=== PATIENT | female | born 1945 | race Caucasian/White ===

== ENCOUNTER 2018-11-18 09:06 | Outpatient (REF) | payer OTHER, SELFPAY ==
[2018-11-18 22:12] LABS: Anion Gap 8.5 mmol/L (3-11); BUN 15 mg/dL (7-18); CO2 28.5 mmol/L (21.0-32.0); CREATININE 0.99 mg/dL (0.55-1.02); Calcium 9.3 mg/dL (8.5-10.1); Chloride 102 mmol/L (98-107); Cholesterol 273 mg/dL (50-200); Estimated GFR 55.29 (mL/min/1.73m2); Glucose 82 mg/dL (70-100); HDL Cholesterol 96 mg/dL (40-60); LDL CHOLESTEROL 157 mg/dL (<100); Potassium 3.9 mmol/L (3.5-5.1); Sodium 139 mmol/L (136-145); TSH (W/Ref FT4) 4.88 uIU/mL (0.358-3.74); Triglyceride 66 mg/dL (30-150)
[2018-11-18 22:31] LABS: FREE T4 1.03 ng/dL (0.76-1.46)
== END 2018-11-18 09:26 ==
LOC: NCHCN 09:06
PROVIDERS: PCP Internal Medicine; Visit Provider Internal Medicine
DX: E03.9 Hypothyroidism, unspecified (principal)
CPT/HCPCS: 80048; 80061; 83721; 84439; 84443

== ENCOUNTER 2019-02-25 13:51 | Outpatient (REF) | payer OTHER, SELFPAY ==
[2019-02-25 22:55] LABS: C-Reactive Protein 0.11 mg/dL (0.0-0.3); Uric Acid 4.7 mg/dL (2.6-6.0)
[2019-03-01 09:18] LABS: Cyclic Citrullinated Peptide 3.6 U/mL (<5.0)
[2019-03-01 15:44] LABS: ANA Interpretation Negative (NEGAT)
== END 2019-02-25 14:11 ==
LOC: NCHCN 13:51
PROVIDERS: PCP Internal Medicine; Visit Provider Internal Medicine
DX: M79.641 Pain in right hand (principal)
CPT/HCPCS: 86200; 84550; 86038; 86140

== ENCOUNTER 2020-05-12 15:52 | Outpatient (REF) | payer OTHER, SELFPAY ==
[2020-05-12 21:45] LABS: TSH 2.59 uIU/mL (0.36-3.74)
== END 2020-05-12 16:12 ==
LOC: NCHCN 15:52
PROVIDERS: PCP Internal Medicine; Visit Provider Internal Medicine
DX: Z00.00 Encounter for general adult medical examination without abnormal findings (principal); E03.9 Hypothyroidism, unspecified
CPT/HCPCS: 84443

== ENCOUNTER 2021-05-15 09:52 | Outpatient (REF) | payer MEDICARE, SELFPAY ==
[2021-05-15 15:21] LABS: Anion Gap 8.9 mmol/L (3-11); BUN 13 mg/dL (7-18); CO2 27.1 mmol/L (21.0-32.0); CREATININE 0.9 mg/dL (0.55-1.02); Calcium 9.5 mg/dL (8.5-10.1); Calculated LDL 139 mg/dL (<100); Chloride 104 mmol/L (98-107); Cholesterol 240 mg/dL (<200); Glucose 87 mg/dL (74-106); HDL Cholesterol 86 mg/dL (40-60); Potassium 4.2 mmol/L (3.5-5.1); Sodium 140 mmol/L (136-145); TSH 2.52 uIU/mL (0.36-3.74); Triglyceride 78 mg/dL (<150)
== END 2021-05-15 09:53 | disposition home or self-care (01) ==
LOC: NCHCN 09:52
PROVIDERS: PCP Internal Medicine; Visit Provider Internal Medicine
DX: E03.9 Hypothyroidism, unspecified (principal); M85.88 Other specified disorders of bone density and structure, other site; Z00.00 Encounter for general adult medical examination without abnormal findings
CPT/HCPCS: 80048; 80061; 84443

== ENCOUNTER 2022-04-05 15:11 | Outpatient (REF) | payer MEDICARE, SELFPAY ==
[2022-04-05 20:48] LABS: HCT 40.9 % (36.0-46.0); HGB 12.8 g/dL (11.2-15.7); MCH 27.3 pg (27.0-33.0); MCHC 31.3 % (32.0-36.0); MCV 87 fL (80-95); MPV 9.8 fL (8.0-11.0); Platelet Count 417 10^3/uL (130-400); RBC 4.69 10^6/uL (3.93-5.22); RDW 13.2 % (11.7-14.6); RDW-SD 41.7 fL; WBC 4.87 10^3/uL (4.4-10.8)
[2022-04-05 21:21] LABS: ALT 29 U/L (14-59); AST 28 U/L (15-37); Albumin 3.9 g/dL (3.4-5.0); Alkaline Phosphatase 87 U/L (46-116); Anion Gap 10.8 mmol/L (3-11); BUN 10 mg/dL (7-18); Bilirubin, Total 0.4 mg/dL (0.2-1.0); CO2 25.2 mmol/L (21.0-32.0); CREATININE 0.9 mg/dL (0.55-1.02); Calcium 10.7 mg/dL (8.5-10.1); Chloride 98 mmol/L (98-107); Estimated GFR 67.08 (mL/min/1.73m2); Glucose 89 mg/dL (74-106); Potassium 4.4 mmol/L (3.5-5.1); Sodium 134 mmol/L (136-145); TSH (W/Ref FT4) 2.21 uIU/mL (0.36-3.74); Total Protein 8.6 g/dL (6.4-8.2)
== END 2022-04-05 15:12 | disposition home or self-care (01) ==
LOC: NCHCN 15:11
PROVIDERS: PCP Internal Medicine; Visit Provider Internal Medicine
DX: E03.9 Hypothyroidism, unspecified (principal); R53.83 Other fatigue
CPT/HCPCS: 80053; 85027; 84443

== ENCOUNTER 2022-05-23 15:18 | Outpatient (REF) | payer MEDICARE, SELFPAY ==
[2022-05-27 13:55] LABS: Helicobacter pylori Ag, Feces Negative (Negative)
== END 2022-05-23 15:19 | disposition home or self-care (01) ==
LOC: NCHCN 15:18
PROVIDERS: PCP Internal Medicine; Visit Provider Internal Medicine
DX: R63.4 Abnormal weight loss (principal)
CPT/HCPCS: 87338

== ENCOUNTER 2022-07-12 17:03 | Outpatient (REF) | payer MEDICARE, SELFPAY ==
[2022-07-12 20:48] LABS: Abs Immature Grans 0.27 10^3/uL (0.0-0.06); Absolute Basophil Count 0.05 10^3/uL (0.0-0.2); Absolute Monocyte Count 1.33 10^3/uL (0.1-0.8); Basophils % 0.3; Eosinophils % 0.3; HCT 23.6 % (36.0-46.0); Immature Grans % 1.7; Lymphocytes % 8.7; MCH 27.1 pg (27.0-33.0); MCHC 33.9 % (32.0-36.0); MCV 80 fL (80-95); MPV 9.1 fL (8.0-11.0); Monocytes % 8.4; Neutrophils % 80.6; RBC 2.95 10^6/uL (3.93-5.22); RDW 17.1 % (11.7-14.6); RDW-SD 48.3 fL; WBC 15.83 10^3/uL (4.4-10.8)
[2022-07-12 21:03] LABS: ALT 41 U/L (14-59); AST 60 U/L (15-37); Albumin 1.8 g/dL (3.4-5.0); Alkaline Phosphatase 207 U/L (46-116); Anion Gap 8.6 mmol/L (3-11); BUN 12 mg/dL (7-18); Bilirubin, Total 0.6 mg/dL (0.2-1.0); CO2 24.4 mmol/L (21.0-32.0); CREATININE 0.8 mg/dL (0.55-1.02); Calcium 8.6 mg/dL (8.5-10.1); Chloride 97 mmol/L (98-107); Estimated GFR 76.79 (mL/min/1.73m2); Glucose 102 mg/dL (74-106); Potassium 3.7 mmol/L (3.5-5.1); Sodium 130 mmol/L (136-145); TSH 21.76 uIU/mL (0.36-3.74); Total Protein 6.5 g/dL (6.4-8.2)
[2022-07-12 21:07] LABS: COMMENT (LAB VIEW ONLY) 98.72 mg/dL; Microalb ug/mg Crea 10.7 ug/mg Cr
[2022-07-12 21:25] LABS: Absolute Eosinophil Count 0.05 10^3/uL (0.0-0.7); Absolute Lymphocyte Count 1.38 10^3/uL (1.2-3.4); Absolute Neutrophil Count 12.76 10^3/uL (1.2-6.7)
[2022-07-12 23:06] LABS: Platelet Count 776 10^3/uL (130-400)
== END 2022-07-12 17:04 | disposition home or self-care (01) ==
LOC: NCHCN 17:03
PROVIDERS: PCP Internal Medicine; Visit Provider Registered Nurse
DX: E03.9 Hypothyroidism, unspecified; R53.1 Weakness; R53.83 Other fatigue
CPT/HCPCS: 80053; 82043; 82570; 84443; 85025

== ENCOUNTER 2022-08-19 17:20 | Outpatient (REF) | payer MEDICARE, SELFPAY ==
[2022-08-19 21:14] LABS: Abs Immature Grans 0.02 10^3/uL (0.0-0.06); Absolute Basophil Count 0.07 10^3/uL (0.0-0.2); Absolute Eosinophil Count 0.26 10^3/uL (0.0-0.7); Absolute Lymphocyte Count 0.85 10^3/uL (1.2-3.4); Absolute Monocyte Count 0.62 10^3/uL (0.1-0.8); Absolute Neutrophil Count 4.25 10^3/uL (1.2-6.7); Basophils % 1.2; Eosinophils % 4.3; HCT 32.1 % (36.0-46.0); Immature Grans % 0.3; MCH 28.4 pg (27.0-33.0); MCHC 31.2 % (32.0-36.0); MCV 91 fL (80-95); Monocytes % 10.2; Platelet Count 562 10^3/uL (130-400); RBC 3.52 10^6/uL (3.93-5.22); RDW 16.5 % (11.7-14.6); WBC 6.07 10^3/uL (4.4-10.8)
[2022-08-19 21:34] LABS: ALT 27 U/L (14-59); AST 29 U/L (15-37); Albumin 2.6 g/dL (3.4-5.0); Alkaline Phosphatase 95 U/L (46-116); Anion Gap 5.7 mmol/L (3-11); BUN 19 mg/dL (7-18); Bilirubin, Total 0.3 mg/dL (0.2-1.0); CO2 28.3 mmol/L (21.0-32.0); CREATININE 0.6 mg/dL (0.55-1.02); Calcium 9.1 mg/dL (8.5-10.1); Chloride 99 mmol/L (98-107); Estimated GFR 93.55 (mL/min/1.73m2); Glucose 111 mg/dL (74-106); Sodium 133 mmol/L (136-145); TSH 14.89 uIU/mL (0.36-3.74); Total Protein 7.5 g/dL (6.4-8.2)
== END 2022-08-19 17:21 | disposition home or self-care (01) ==
LOC: NCHCN 17:20
PROVIDERS: PCP Internal Medicine; Visit Provider Internal Medicine
DX: R63.4 Abnormal weight loss (principal); D64.9 Anemia, unspecified
CPT/HCPCS: 80053; 84443; 85025

== ENCOUNTER 2022-09-19 18:27 | Outpatient (REF) | payer MEDICARE, SELFPAY ==
[2022-09-19 20:51] LABS: HCT 35.9 % (36.0-46.0); MCH 27.1 pg (27.0-33.0); MCHC 30.6 % (32.0-36.0); MCV 88 fL (80-95); MPV 9.5 fL (8.0-11.0); Platelet Count 401 10^3/uL (130-400); RBC 4.06 10^6/uL (3.93-5.22); RDW 14.9 % (11.7-14.6); RDW-SD 48.7 fL; WBC 5.28 10^3/uL (4.4-10.8)
[2022-09-19 21:21] LABS: ALT 26 U/L (14-59); AST 25 U/L (15-37); Albumin 3.2 g/dL (3.4-5.0); Alkaline Phosphatase 83 U/L (46-116); Anion Gap 7.6 mmol/L (3-11); BUN 21 mg/dL (7-18); Bilirubin, Total 0.2 mg/dL (0.2-1.0); CO2 27.4 mmol/L (21.0-32.0); CREATININE 0.7 mg/dL (0.55-1.02); Calcium 9.2 mg/dL (8.5-10.1); Chloride 102 mmol/L (98-107); Estimated GFR 90.14 (mL/min/1.73m2); Glucose 96 mg/dL (74-106); Potassium 4.2 mmol/L (3.5-5.1); Sodium 137 mmol/L (136-145); TSH 8.99 uIU/mL (0.36-3.74); Total Protein 8.1 g/dL (6.4-8.2)
== END 2022-09-19 18:28 | disposition home or self-care (01) ==
LOC: NCHCN 18:27
PROVIDERS: PCP Internal Medicine; Visit Provider Internal Medicine
DX: D64.9 Anemia, unspecified (principal); E03.9 Hypothyroidism, unspecified; E88.09 Other disorders of plasma-protein metabolism, not elsewhere classified
CPT/HCPCS: 80053; 85027; 84443

== ENCOUNTER 2022-11-15 15:18 | Outpatient (REF) | payer MEDICARE, SELFPAY ==
[2022-11-15 14:13] LABS: HCT 39.4 % (36.0-46.0); HGB 12.5 g/dL (11.2-15.7); MCH 27.1 pg (27.0-33.0); MCHC 31.7 % (32.0-36.0); MCV 86 fL (80-95); MPV 10.8 fL (8.0-11.0); Platelet Count 230 10^3/uL (130-400); RBC 4.61 10^6/uL (3.93-5.22); RDW 16.7 % (11.7-14.6); RDW-SD 52.4 fL
[2022-11-15 14:25] LABS: TSH 5.04 uIU/mL (0.36-3.74)
== END 2022-11-15 15:19 | disposition home or self-care (01) ==
LOC: NCHCN 15:18
PROVIDERS: PCP Internal Medicine; Visit Provider Internal Medicine
DX: E03.9 Hypothyroidism, unspecified (principal); D64.9 Anemia, unspecified; R63.4 Abnormal weight loss
CPT/HCPCS: 85027; 84443

== ENCOUNTER 2023-02-12 09:46 | Outpatient (REF) | payer MEDICARE, SELFPAY ==
[2023-02-12 14:58] LABS: HCT 39.6 % (36.0-46.0); HGB 12.9 g/dL (11.2-15.7); MCH 29.3 pg (27.0-33.0); MCHC 32.6 % (32.0-36.0); MCV 90 fL (80-95); MPV 10.4 fL (8.0-11.0); Platelet Count 253 10^3/uL (130-400); RBC 4.41 10^6/uL (3.93-5.22); RDW 13.2 % (11.7-14.6); RDW-SD 43.8 fL; WBC 3.56 10^3/uL (4.4-10.8)
[2023-02-12 15:33] LABS: ALT 20 U/L (14-59); AST 23 U/L (15-37); Albumin 3.6 g/dL (3.4-5.0); Alkaline Phosphatase 65 U/L (46-116); Anion Gap 7.9 mmol/L (3-11); BUN 18 mg/dL (7-18); Bilirubin, Total 0.7 mg/dL (0.2-1.0); CO2 28.1 mmol/L (21.0-32.0); Calcium 9.4 mg/dL (8.5-10.1); Chloride 103 mmol/L (98-107); Estimated GFR 58.75 (mL/min/1.73m2); Glucose 125 mg/dL (74-106); Sodium 139 mmol/L (136-145); TSH 3.48 uIU/mL (0.36-3.74); Total Protein 7.4 g/dL (6.4-8.2)
== END 2023-02-12 09:47 | disposition home or self-care (01) ==
LOC: NCHCN 09:46
PROVIDERS: PCP Internal Medicine; Visit Provider Internal Medicine
DX: E03.9 Hypothyroidism, unspecified (principal); D72.819 Decreased white blood cell count, unspecified; D64.9 Anemia, unspecified; R63.4 Abnormal weight loss
CPT/HCPCS: 80053; 85027; 84443

== ENCOUNTER 2023-08-14 10:32 | Outpatient (REF) | payer MEDICARE, SELFPAY ==
[2023-08-14 15:06] LABS: HCT 40.5 % (36.0-46.0); HGB 13.2 g/dL (11.2-15.7); MCH 29.9 pg (27.0-33.0); MCHC 32.6 % (32.0-36.0); MCV 92 fL (80-95); MPV 10.9 fL (8.0-11.0); Platelet Count 219 10^3/uL (130-400); RBC 4.42 10^6/uL (3.93-5.22); RDW-SD 44.2 fL; WBC 4.87 10^3/uL (4.4-10.8)
[2023-08-14 15:44] LABS: TSH 2.65 uIU/mL (0.36-3.74)
== END 2023-08-14 10:33 | disposition home or self-care (01) ==
LOC: NCHCN 10:32
PROVIDERS: PCP Internal Medicine; Visit Provider Internal Medicine
DX: E03.9 Hypothyroidism, unspecified (principal)
CPT/HCPCS: 85027; 84443

== ENCOUNTER 2024-03-17 14:43 | Outpatient (REF) | payer MEDICARE, SELFPAY ==
[2024-03-17 15:38] LABS: Anion Gap 7.4 mmol/L (3-11); BUN 16 mg/dL (7-18); CO2 28.6 mmol/L (21.0-32.0); CREATININE 1.1 mg/dL (0.55-1.02); Chloride 104 mmol/L (98-107); Estimated GFR 52.08 (mL/min/1.73m2); Glucose 94 mg/dL (74-106); Potassium 4.1 mmol/L (3.5-5.1); Sodium 140 mmol/L (136-145); Vitamin D 25 Total 91.7 ng/mL (30-100)
== END 2024-03-17 14:44 | disposition home or self-care (01) ==
LOC: NCHCN 14:43
PROVIDERS: PCP Internal Medicine; Visit Provider Internal Medicine
DX: M81.0 Age-related osteoporosis without current pathological fracture (principal)
CPT/HCPCS: 80048; 82306

== ENCOUNTER 2024-08-20 14:19 | Outpatient (REF) | payer MEDICARE, SELFPAY ==
[2024-08-20 14:32] LABS: HCT 41.3 % (36.0-46.0); HGB 13.4 g/dL (11.2-15.7); MCHC 32.4 % (32.0-36.0); MCV 92 fL (80-95); Platelet Count 195 10^3/uL (130-400); RBC 4.47 10^6/uL (3.93-5.22); RDW-SD 43.9 fL; WBC 3.84 10^3/uL (4.4-10.8)
[2024-08-20 14:54] LABS: Anion Gap 7.9 mmol/L (3-11); BUN 17 mg/dL (7-18); CO2 28.1 mmol/L (21.0-32.0); CREATININE 1.1 mg/dL (0.55-1.02); Calcium 9.1 mg/dL (8.5-10.1); Calculated LDL 114 mg/dL (<100); Chloride 98 mmol/L (98-107); Cholesterol 229 mg/dL (<200); Estimated GFR 51.75 (mL/min/1.73m2); Glucose 120 mg/dL (74-106); HDL Cholesterol 102 mg/dL (40-60); Potassium 3.8 mmol/L (3.5-5.1); Sodium 134 mmol/L (136-145); TSH 4.02 uIU/mL (0.36-3.74); Triglyceride 68 mg/dL (<150)
== END 2024-08-20 14:20 | disposition home or self-care (01) ==
LOC: NCHCN 14:19
PROVIDERS: PCP Internal Medicine; Visit Provider Internal Medicine
DX: N18.31 Chronic kidney disease, stage 3a (principal); E03.9 Hypothyroidism, unspecified
CPT/HCPCS: 80048; 80061; 85027; 84443

== ENCOUNTER 2024-11-23 11:59 | Outpatient (REF) | payer MEDICARE, SELFPAY ==
[2024-11-23 16:47] LABS: Anion Gap 5.7 mmol/L (3-11); BUN 18 mg/dL (7-18); CO2 28.3 mmol/L (21.0-32.0); CREATININE 0.9 mg/dL (0.55-1.02); Calcium 9.7 mg/dL (8.5-10.1); Chloride 102 mmol/L (98-107); Estimated GFR 65.84 (mL/min/1.73m2); Glucose 105 mg/dL (74-106); Potassium 4.2 mmol/L (3.5-5.1); Sodium 136 mmol/L (136-145); TSH 1.24 uIU/mL (0.36-3.74)
== END 2024-11-23 12:00 | disposition home or self-care (01) ==
LOC: NCHCN 11:59
PROVIDERS: PCP Internal Medicine; Visit Provider Internal Medicine
DX: E87.1 Hypo-osmolality and hyponatremia (principal); E03.9 Hypothyroidism, unspecified
CPT/HCPCS: 80048; 84443